=== PATIENT | male | born 1995 | race Caucasian/White ===

== ENCOUNTER 2019-09-02 12:53 | Emergency (ER) | payer OTHER, SELFPAY ==
[2019-09-02 12:56] VITALS: BP 132/91; PULSE 92; RESP 18; TEMP 36.5; O2SAT 98
--- NOTE | 2019-09-02 13:04 | ED.SKABFB ---
HPI - Skin/Abscess/Foreign Bdy General Chief complaint: Skin/Abscess/Foreign Body Stated complaint: Rash in groin area x 1week Time Seen by Provider: 09/02/19 13:04 Source: patient Mode of arrival: Ambulatory Limitations: no limitations History of Present Illness HPI narrative: 23-year-old male here for evaluation of redness and itching around his groin area. Has been taking a prescription of clotrimazole for this for the past 4 days. No history of STDs. Not concerned about them. Related Data Previous Rx's Medication Instructions Recorded itraconazole 200 mg PO DAILY 7 Days #7 tab 09/02/19 Allergies Allergy/AdvReac Type Severity Reaction Status Date / Time No Known Drug Allergies Allergy Verified 09/02/19 12:59 Review of Systems Constitutional Constitutional: Denies fever(s) Genitourinary Comments: Itching around the groin Integumentary/Breasts Comments: Rash in flaky skin around his groin Patient History Medical History (Updated 09/02/19 @ 13:31 by Peña Olvera DO) Healthy adult (Acute) Social History Smoking Status: Current every day smoker Smoking Status: Current every day smoker tobacco type: vaping alcohol intake frequency: 0-2 drinks per day Substance Use Type: does not use Exam Initial Vital Signs Initial Vital Signs: Vital Signs Temperature 97.7 F 09/02/19 12:56 Pulse Rate 92 H 09/02/19 12:56 Respiratory Rate 18 09/02/19 12:56 Blood Pressure 132/91 H 09/02/19 12:56 Pulse Oximetry 98 09/02/19 12:56 Const General: cooperative and comfortable Skin Other: Flaking of the skin in the folds along the upper inner thigh in the scrotum. No vesicles. No pustules. Extrem General: capillary refill normal Course Vital Signs Vital signs: Vital Signs - 8 hr 09/02/19 12:56 Temperature 97.7 F Pulse Rate 92 H Respiratory Rate 18 Blood Pressure 132/91 H Pulse Oximetry 98 MDM - Skin/Abscess/Foreign Bdy MDM Narrative Medical decision making narrative: History and physical exam consistent with tinea cruris. Has been on topical without any improvement. Will start on oral medications. He was given return precautions and follow-up instructions. He expressed understanding agreement plan. Discharge Plan Departure Patient Disposition: Home Clinical Impression: Tinea cruris Instructions: DI for Jock Itch Activity Restrictions/Additional Instructions: Be sure to keep the area as dry as possible. Use the medication as directed. Contact your medical department for follow-up. Return to the emergency department for any new or worsening symptoms Prescriptions: New itraconazole 200 mg tablet 200 mg PO DAILY 7 Days Qty: 7 RF: 0
== END 2019-09-02 13:37 | disposition home or self-care (01) ==
PROVIDERS: Emergency Provider Emergency Medicine
DX: B35.6 Tinea cruris (principal)
CPT/HCPCS: 99281; 99283